=== PATIENT | female | born 1985 | race Caucasian/White ===

== ENCOUNTER 2020-05-19 08:10 | Observation (INO) | payer BC ==
[2020-05-19] MEDS ORDERED: Morphine 4 MG/ML VIAL ONE ×2 (08:27→15:29)
[2020-05-19] MEDS ORDERED: Ondansetron PF 4 MG/2 ML Vial ONE ×2 (08:27→15:29)
[2020-05-19] MEDS ORDERED: Bacitracin 1 PK ONE (08:44)
[2020-05-19 08:56] LABS: #Basophils 0.1 thou/uL (0.0-0.2); #Eosinphils 0.7 thou/uL (0.0-0.7); #Monocytes 0.6 thou/uL (0.11-0.59); #Neutrophils 6.9 thou/uL (1.40-6.50); %Basophils 0.6 % (0.0-1.0); %Eosinophils 6.8 % (0.0-10.0); %Lymphocytes 19.2 % (21.0-51.0); %Monocytes 5.9 % (0.0-10.0); %Neutrophils 67.4 % (42.0-75.0); Hemoglobin 12.5 g/dL (12.0-16.0); Mean Corpuscular HGB CONC 33.4 g/dL (32.0-36.0); Mean Corpuscular Hemoglobin 30.5 pg (27.0-31.0); Mean Corpuscular Volume 91.3 fL (78.0-98.0); Mean Platelet Volume 8.3 fL (7.4-10.4); Platelet Count 224 thou/uL (130-400); RBC Distribution Width 11.4 % (11.5-14.5); Red Blood Cell (RBC) Count 4.09 mill/uL (4.20-5.40); White Blood Cell (WBC) Count 10.2 thou/uL (4.8-10.8)
[2020-05-19 09:06] LABS: Bilirubin Negative (Negative); Blood, Urine 3+ (Negative); Clarity Clear (Clear); Glucose, Urine (Dipstick) Normal (Negative); Ketone, Urine Negative (Negative); Leukocyte Negative Leu/uL (Negative); Nitrite Negative (Negative); Protein, Urine (Dipstick) Negative (Neg-Trace); Specific Gravity, Urine 1.006 (1.002-1.036); Squamous Epithelial 0-3 HPF (0-3); Urobilinogen Normal mg/dL (Less than 2)
[2020-05-19 09:07] LABS: Bacteria/HPF 1+ HPF (None Seen)
[2020-05-19 09:09] LABS: Pregnancy Test - Urine (BHCG) Negative (Negative); Pregu Control Background? CLEAR/WHITE (CLR/WHITE); Pregu Control Bar Appear? YES (CONTROL BAR); Specific Gravity 1.006 (1.002-1.036)
[2020-05-19 09:14] LABS: ALT (SGPT) 34 U/L (8-55); AST (SGOT) 26 U/L (5-34); Alkaline Phosphatase 72 U/L (40-110); Anion Gap 14 mmol/L (10-20); BUN (Urea Nitrogen) 12 mg/dL (7.0-18.7); Bilirubin, Total 0.3 mg/dL (0.2-1.2); Calc. Creatinine Clearance 0 mL/min (70-130); Calcium 8.7 mg/dL (7.8-10.44); Carbon Dioxide 23 mmol/L (22-29); Chloride 103 mmol/L (98-107); Globulin 2.7 g/dL (2.4-3.5); Glucose 142 mg/dL (70-105); Potassium 3.6 mmol/L (3.5-5.1); Protein, Total 6.7 g/dL (6.0-8.3); Sodium 136 mmol/L (136-145)
--- NOTE | 2020-05-19 09:51 | CT ---
CT ABDOMEN AND PELVIS PERFORMED WITHOUT CONTRAST ENHANCEMENT: Date: 05/19/2020 HISTORY: Left-sided flank pain. History of kidney stones. COMPARISON: 11/27/2015 study. FINDINGS: The lung bases are clear. The liver, spleen, pancreas, and gallbladder regions appear unremarkable. Right and left adrenal glan ds are normal. Multiple bilateral renal calculi are seen. There is left-sided hydronephrosis related to an approximately 8.0 mm left ureteropelvic junction calculus. There is no significant periaortic o r mesenteric adenopathy. CT of pelvis was performed without contrast enhancement. The appendix is normal. There is no adenopat hy, mass, or free fluid. IMPRESSION: 1. Approximately 8.0 mm left ureteropelvic junction calculus associated with some moderate left-side d hydronephrosis. 2. Bilateral renal calculi. POS: BARON
[2020-05-19] MEDS ORDERED: cefTRIAXone\\ROCEPHIN 1 GM VIAL ONE (10:41)
[2020-05-19] MEDS ORDERED: Sodium Chloride 0.9% 100 ML ONE (10:41)
[2020-05-19 12:51] LABS: SARS-CoV-2 NAA Rapid Test Not Detected (NotDetected)
[2020-05-19] MEDS ORDERED: HYDROcodone/Acetaminophen 10/325 mg Tablet PO PRN (16:46)
[2020-05-19] MEDS ORDERED: Zolpidem Tartrate 5 MG TAB PO PRN (16:46)
[2020-05-19] MEDS ORDERED: diphenhydrAMINE 50 MG/ML VIAL IVP PRN (16:46)
[2020-05-19] MEDS ORDERED: Morphine 4 MG/ML VIAL SLOW IVP PRN (16:46)
[2020-05-19 17:15] VITALS: BMI 26.6
[2020-05-19] MEDS: Sodium Chloride 0.9% 1,000 ML IV SCH (20:47)
[2020-05-19] MEDS: Famotidine/PF 20 mg/2ml Vial SLOW IVP SCH (20:47)
[2020-05-19] MEDS: Docusate 100 MG CAP PO SCH (21:26)
--- NOTE | 2020-05-19 23:44 | HP ---
CHIEF COMPLAINT: Left-sided flank pain. HISTORY OF PRESENT ILLNESS: This is a pleasant 34-year-old female with a long history of recurrent kidney stones previously managed by Dr. Huggins. She tells me that she has been having intermittent flank pain, both left and right since mid to late March. She passed two stones the day before Thanks and did not have any further discomfort until midnight last night at which point, she developed severe left-sided flank pain with nausea, up to 10/10. She presented to the emergency room and was evaluated and stabilized. CT scan shows a large obstructing left proximal ureteral stone. Her pain has been difficult to control, and so given the size of the stone and her continued pain, admission was requested. In speaking with her this afternoon, she continues to have intermittent flank pain with associated nausea. The flank pain does not radiate towards her groin. She denies dysuria, fevers, or chills. PAST MEDICAL HISTORY: Recurrent kidney stones. SURGICAL HISTORY: Deviated septum, TMJ surgery, ear tubes. SOCIAL HISTORY: . Three sons; 8, 6, and 4. No substance abuse. CURRENT MEDICATIONS: Lexapro. VITAL SIGNS: Afebrile, vitals stable. REVIEW OF SYSTEMS: 12-point review of systems is negative, except as mentioned in my HPI. PHYSICAL EXAMINATION: GENERAL: The patient appears to be in moderate distress, conversant. HEAD: Normocephalic and atraumatic. Extraocular movements intact. Sclerae anicteric. NECK: Supple. Trachea midline. Unlabored breathing. Symmetric chest expansion. HEART: Regular rate and rhythm. ABDOMEN: Soft, nontender, nondistended. Mild left flank tenderness. No suprapubic tenderness. SKIN: Warm and dry. EXTREMITIES: Without clubbing, cyanosis, or edema. PSYCHIATRIC: Normal mood and affect. NEUROLOGIC: Alert and oriented x3. IMAGING DATA: I personally reviewed her CT scan, which does show several stones scattered throughout both kidneys. However, only one ureteral stone in the proximal left ureter, 8 to 9 mm in size with hydronephrosis approximately. LABORATORY DATA: Reviewed. White count 10.2. Creatinine 0.80. Urinalysis, positive blood and WBCs. No evidence of infection. COVID negative. Urine test negative. ASSESSMENT AND PLAN: Obstructing left ureteral stone with hydronephrosis. The patient and I discussed her options and have decided together to admit her overnight with plans for ureteroscopy tomorrow. I anticipate that she will discharge afterwards. I discussed the ureteroscopy procedure in detail including the risks of bleeding, infection, pain, and inability to access or clear the stone, possible need for repeat procedure, ureteral injury or formation of ureteral stricture. She expressed understanding and wishes to proceed. Job ID: [id number]
[2020-05-20] MEDS: Sodium Chloride 0.9% 1,000 ML IV SCH ×2 (03:56→15:09)
[2020-05-20 05:51] LABS: #Basophils 0.1 thou/uL (0.0-0.2); #Eosinphils 0.8 thou/uL (0.0-0.7); #Lymphocytes 2.5 thou/uL (1.20-3.40); #Monocytes 0.6 thou/uL (0.11-0.59); #Neutrophils 3.4 thou/uL (1.40-6.50); %Basophils 1.3 % (0.0-1.0); %Eosinophils 10.2 % (0.0-10.0); %Lymphocytes 34.5 % (21.0-51.0); %Monocytes 7.6 % (0.0-10.0); %Neutrophils 46.5 % (42.0-75.0); Hemoglobin 11.5 g/dL (12.0-16.0); Mean Corpuscular HGB CONC 32.3 g/dL (32.0-36.0); Mean Corpuscular Hemoglobin 30.1 pg (27.0-31.0); Mean Platelet Volume 8.4 fL (7.4-10.4); Platelet Count 230 thou/uL (130-400); RBC Distribution Width 11.7 % (11.5-14.5); Red Blood Cell (RBC) Count 3.81 mill/uL (4.20-5.40); White Blood Cell (WBC) Count 7.3 thou/uL (4.8-10.8)
[2020-05-20 06:11] LABS: Anion Gap 11 mmol/L (10-20); BUN (Urea Nitrogen) 8 mg/dL (7.0-18.7); Calc. Creatinine Clearance 133 mL/min (70-130); Calcium 8.1 mg/dL (7.8-10.44); Carbon Dioxide 22 mmol/L (22-29); Chloride 109 mmol/L (98-107); Glucose 98 mg/dL (70-105); Sodium 138 mmol/L (136-145)
[2020-05-20] MEDS ORDERED: FLU VACC QS2020-21(6MOS UP)/PF 60 MCG/0.5 ML SYRINGE IM ONE (09:00)
[2020-05-20] MEDS ORDERED: Escitalopram Oxalate 20 mg Tablet PO SCH (09:00)
[2020-05-20] MEDS ORDERED: Enoxaparin Sodium 40 MG/0.4 ML SYRINGE SC SCH (09:00)
[2020-05-20] MEDS: Famotidine/PF 20 mg/2ml Vial SLOW IVP SCH (09:09)
[2020-05-20] MEDS: Docusate 100 MG CAP PO SCH (09:09)
[2020-05-20] MEDS: Ketorolac Tromethamine 30 MG/ML VIAL IVP PRN ×2 (10:41→19:28)
[2020-05-20] MEDS ORDERED: Ondansetron PF 4 MG/2 ML Vial ONE (11:21)
[2020-05-20] MEDS ORDERED: Dexamethasone 20 MG/5 ML VIAL ONE (11:21)
[2020-05-20] MEDS ORDERED: Lidocaine 1% PF 5 ML VIAL ONE (11:21)
[2020-05-20] MEDS ORDERED: PROPOFOL 200 MG/20 ML VIAL ONE (11:21)
[2020-05-20] MEDS ORDERED: Levofloxacin 500 mg/D5W 100 ml Premix Bag ONE (13:42)
[2020-05-20] MEDS ORDERED: Scopolamine 1.5 mg/72 hour Patch ONE (15:24)
[2020-05-20] MEDS ORDERED: Lidocaine 2% Jelly 5 ML TUBE ONE (15:49)
[2020-05-20] MEDS ORDERED: Fentanyl 100 MCG/2 ML VIAL ONE ×3 (15:49→17:58)
[2020-05-20] MEDS ORDERED: Midazolam HCl 2 mg/2 ml Vial ONE ×2 (15:49→16:27)
[2020-05-20] MEDS ORDERED: Iothalamate Meglumine 60% 50 ML VIAL FS ONE (16:22)
--- NOTE | 2020-05-20 17:56 | RAD ---
XR IVP Retrograde History: Stent placement Comparison: CT exam prior day Findings: Multiple images were obtained from the procedures suite. Interval placement of a stent in t he left ureter. The last image demonstrates continued moderate hydronephrosis. Impression: Fluoroscopy for procedure purposes.
[2020-05-20 18:46] VITALS: BP 115/75; TEMP 97.8
--- NOTE | 2020-05-20 23:28 | OP ---
DATE OF PROCEDURE: 05/20/2020 PREOPERATIVE DIAGNOSIS: Left ureteral stone. POSTOPERATIVE DIAGNOSE: Left ureteral stone and left renal stones. PROCEDURES PERFORMED: Left ureteroscopy with laser lithotripsy, basket extraction, retrograde pyelogram, intraoperative interpretation of radiologic imaging and 4.8 x 24 double-J ureteral stent placement. ANESTHESIA: General. COMPLICATIONS: None. ESTIMATED BLOOD LOSS: Minimal. SPECIMEN: Left ureteral stone fragments. DESCRIPTION OF PROCEDURE: After informed consent, the patient was taken to the operating room, transferred to the table on her own power. Anesthesia was established. A time-out was performed showing the correct patient, site, and procedure. Preoperative antibiotics were administered. She was prepped and draped in the lithotomy position. A semi-rigid ureteroscope was advanced through the urethra into the bladder. The left ureteral orifice was identified and cannulated with a wire, which was passed up to the level of the renal pelvis under fluoroscopic guidance, noting a radiolucency in the proximal ureter. The scope was withdrawn and reinserted alongside the wire into the ureter and passed into the mid ureter. A retrograde pyelogram was performed showing good filling with a filling defect at the UPJ and hydronephrosis beyond. The scope was then passed up to the level of the stone. However, upon accessing, it migrated back into the renal pelvis. The scope was then withdrawn, and an access sheath placed over the wire into the proximal ureter under fluoroscopic guidance. The flexible ureteroscope was passed through this into the renal pelvis, which was systematically examined noting several stones still connected to the renal epithelium and several different calices. I also found the previously obstructing UPJ stone in the renal pelvis. The large stone was treated with a 273 micron laser fiber and fragmented into several small pieces. I then treated the stones and the calices by dusting them into tiny fragments. The Nitinol basket was used to retrieve the clinically significant stone fragments, which were passed off as specimens. The renal pelvis and the calices were then re-examined, noting no clinically significant stone fragments. The pelvis was filled with contrast before removing the scope and access sheath, leaving a wire in place. A 4.8 x 24 double-J ureteral stent was passed over the wire with a curl in the kidney and curl in the bladder under fluoroscopic guidance. String was left attached for the patient to remove in about 5 days. She was then awoken from anesthesia, transferred back to her hospital bed, and taken to PACU in stable condition, where she will discharge home upon returning to the floor. Job ID: [id number]
--- NOTE | 2020-05-20 23:47 | DIS ---
DATE OF ADMISSION: 05/19/2020 DATE OF DISCHARGE: 05/20/2020 DISCHARGE DIAGNOSES: Hydronephrosis, ureteral stone, renal stones. HOSPITAL COURSE: The patient was admitted through the emergency room on May 19 with severe left-sided flank pain refractory to pain management. She was managed overnight as best as we were able and taken the following day to the operating room for ureteroscopy. There were no surgical complications. She returned to the floor afterwards and recovered well. She was deemed stable, discharged later that evening and sent home. DISCHARGE MEDICATIONS: 1. Resume Lexapro at home. 2. Bactrim. 3. Tramadol. 4. Oxybutynin. 5. Zofran had been sent [facility]. PHYSICAL EXAMINATION: GENERAL: No acute distress. Unlabored breathing. HEART: Regular rate and rhythm. ABDOMEN: Soft, nontender, nondistended. Mild left flank tenderness. No suprapubic tenderness. SKIN: Warm and dry. IMAGING DATA: CT performed in the emergency room noting obstructing left ureteral stone. Consult none. FOLLOWUP PLAN: She will remove her stent in five days and follow up with me July 04 with a 24-hour urine collection and renal ultrasound prior. Job ID: [id number]
== END 2020-05-20 20:15 | disposition home or self-care (01) ==
LOC: ERS 08:10 → SURG A 10:40
PROVIDERS: ADMIT Urology; ATTEND Urology
PROC: 0TC48ZZ Extirpation of Matter from Left Kidney Pelvis, Via Natural or Artificial Opening Endoscopic (ICD-10-PCS; principal; 2020-05-19)
PROC: 0T778DZ Dilation of Left Ureter with Intraluminal Device, Via Natural or Artificial Opening Endoscopic (ICD-10-PCS; 2020-05-19)
DX: N13.2 Hydronephrosis with renal and ureteral calculous obstruction (principal); Z79.899 Other long term (current) drug therapy; Z88.0 Allergy status to penicillin; Z20.828 Contact with and (suspected) exposure to other viral communicable diseases
CPT/HCPCS: 36415; 74176; 74420; 80048; 80053; 81003; 81015; 81025; 82365; 85025; 88300; 94760; 96361; 96365; 96372; 96375; 96376; G0378; J0696; J1100; J1650; J1885; J1956; J2250; J2270; J2405; J2704; J3010; J3490; S0028; U0002

== ENCOUNTER 2020-07-01 08:57 | Outpatient (CLI) | payer BC, OTHER ==
--- NOTE | 2020-07-01 09:31 | ULT ---
Renal sonogram HISTORY: Renal stones. Hydronephrosis. COMPARISON: CT abdomen 05/19/2020. FINDINGS: The right kidney measures up to 11.4 cm length and the left 11.6 cm. No hydronephrosis or m ass. Punctate echogenicities with posterior shadowing are evident at nondilated calyces of each kidney. Much less conspicuous than on the prior CT. Urinary bladder shows no focal abnormalities. IMPRESSION : No hydronephrosis. No evidence of urinary tract obstruction. Bilateral renal calculi not well visualized compared to prior CT.
== END 2020-07-01 08:58 | disposition home or self-care (01) ==
LOC: BICULT 08:57
PROVIDERS: ATTEND Urology
DX: N20.0 Calculus of kidney (principal)
CPT/HCPCS: 76770

== ENCOUNTER 2020-12-10 14:19 | Outpatient (CLI) | payer BC | END 2020-12-10 14:20 | disposition home or self-care (01) | LOC: BICCT 14:19 | PROVIDERS: ATTEND Urology | DX: N20.0 Calculus of kidney (principal); K59.00 Constipation, unspecified | CPT/HCPCS: 74176 ==

== ENCOUNTER 2021-10-30 09:55 | Outpatient (CLI) | payer BC, OTHER | END 2021-10-30 09:56 | disposition home or self-care (01) | LOC: BICRAD 09:55 | PROVIDERS: ATTEND Urology | DX: N20.0 Calculus of kidney (principal) | CPT/HCPCS: 74018 ==

== ENCOUNTER 2021-12-08 09:41 | Outpatient (CLI) | payer BC, OTHER ==
[2021-12-08 12:39] LABS: Hemoglobin 12.7 g/dL (12.0-15.5); Mean Corpuscular HGB CONC 32.2 g/dL (32.0-36.0); Mean Corpuscular Hemoglobin 29.1 pg (27.0-33.0); Mean Corpuscular Volume 90.4 fl (81.6-98.3); Platelet Count 260 10x3/uL (150-450); RBC Distribution Width 13.1 % (11.5-14.5); Red Blood Cell (RBC) Count 4.36 10x6/uL (3.90-5.03); White Blood Cell (WBC) Count 8.9 10x3/uL (3.5-10.5)
[2021-12-08 13:00] LABS: BHCG - Serum Negative (NEGATIVE); Pregs Control Background? CLEAR/WHITE (CLR/WHITE); Pregs Control Bar Appear? YES (CONTROL BAR)
[2021-12-08 13:01] LABS: Anion Gap 15 mmol/L (10-20); BUN (Urea Nitrogen) 10 mg/dL (7.0-18.7); Calc. Creatinine Clearance 0 mL/min (70-130); Calcium 9.4 mg/dL (7.8-10.44); Carbon Dioxide 25 mmol/L (22-29); Chloride 105 mmol/L (98-107); Estimated GFR 94; Glucose 84 mg/dL (70-105); Potassium 4.3 mmol/L (3.5-5.1); Sodium 141 mmol/L (136-145)
[2021-12-08 13:04] LABS: Bilirubin Neg (Negative); Blood, Urine Negative (Negative); Glucose, Urine (Dipstick) Normal (Negative); Ketone, Urine Negative (Negative); Leukocyte 25 (Negative); Nitrite Negative (Negative); Protein, Urine (Dipstick) Negative (Neg-Trace); Specific Gravity, Urine 1.005 (1.002-1.036); Urobilinogen Normal mg/dL (Less than 2)
[2021-12-08 13:47] LABS: Bacteria/HPF Rare-Few HPF (None Seen); Clarity c (Clear); RBC/HPF None Seen HPF (0-3); Squamous Epithelial 0-3 HPF (0-3); WBC/HPF 0-3 HPF (0-3)
== END 2021-12-08 09:42 | disposition home or self-care (01) ==
LOC: LABBT 09:41
PROVIDERS: ATTEND Urology
DX: Z01.812 Encounter for preprocedural laboratory examination (principal); N20.0 Calculus of kidney; Z20.822 Contact with and (suspected) exposure to COVID-19
CPT/HCPCS: 80048; 81001; 84703; 85027; 87086; 87811

== ENCOUNTER 2021-12-11 05:58 | Day surgery (SDC) | payer BC, OTHER ==
[2021-12-09 12:00] VITALS: BMI 25.7
[2021-12-11] MEDS ORDERED: Iopamidol 30 ML ONE (06:48)
[2021-12-11] MEDS ORDERED: Scopolamine 1.5 mg/72 hour Patch ONE (06:51)
[2021-12-11] MEDS ORDERED: fentaNYL Citrate/PF 100 MCG/2 ML SYRINGE ONE (06:58)
[2021-12-11] MEDS ORDERED: Dexmedetomidine 200 MCG/2 ML VIAL ONE (06:58)
[2021-12-11] MEDS ORDERED: Levofloxacin 500 mg/D5W 100 ml Premix Bag ONE (07:27)
[2021-12-11] MEDS ORDERED: Glycopyrrolate 0.2 MG/ML 5 ML SYRINGE ONE (07:38)
[2021-12-11] MEDS ORDERED: ePHEDrine 50 MG/ML VIAL ONE (07:38)
[2021-12-11] MEDS ORDERED: Ondansetron PF 4 MG/2 ML Vial ONE (07:38)
[2021-12-11] MEDS ORDERED: Lidocaine 1% PF 5 ML VIAL ONE (07:38)
[2021-12-11] MEDS ORDERED: PROPOFOL 200 MG/20 ML VIAL ONE (07:38)
[2021-12-11] MEDS ORDERED: Rocuronium Bromide 10 MG/ML (10ML VIAL) ONE (07:38)
[2021-12-11] MEDS ORDERED: Dexamethasone 20 MG/5 ML VIAL ONE (07:38)
[2021-12-11] MEDS ORDERED: Fentanyl 100 MCG/2 ML VIAL ONE (08:36)
[2021-12-11] MEDS ORDERED: Ketorolac Tromethamine 30 MG/ML VIAL ONE (08:37)
[2021-12-11] MEDS ORDERED: Oxybutynin 5 MG TAB ONE (08:37)
[2021-12-11] MEDS ORDERED: Phenazopyridine HCl 100 MG TAB ONE (08:37)
[2021-12-11] MEDS ORDERED: Ondansetron ODT 4 MG TAB ONE (10:23)
== END 2021-12-11 11:02 | disposition home or self-care (01) ==
LOC: SDC 05:58
PROVIDERS: ATTEND Urology
PROC: 0T788DZ Dilation of Bilateral Ureters with Intraluminal Device, Via Natural or Artificial Opening Endoscopic (ICD-10-PCS; principal; 2021-12-11)
PROC: 0TC48ZZ Extirpation of Matter from Left Kidney Pelvis, Via Natural or Artificial Opening Endoscopic (ICD-10-PCS; principal; 2021-12-11)
PROC: 0TC38ZZ Extirpation of Matter from Right Kidney Pelvis, Via Natural or Artificial Opening Endoscopic (ICD-10-PCS; principal; 2021-12-11)
DX: N20.0 Calculus of kidney (principal); N28.89 Other specified disorders of kidney and ureter; J45.909 Unspecified asthma, uncomplicated; Z79.899 Other long term (current) drug therapy; Z88.0 Allergy status to penicillin; Z91.011 Allergy to milk products
CPT/HCPCS: 74420; 82365; 88300; C2617; J1100; J1885; J1956; J2405; J2704; J3010; J3490; Q0162; Q9967